=== PATIENT | male | born 1985 | race Caucasian/White ===

== ENCOUNTER 2018-02-14 06:31 | Inpatient (IN) | payer OTHER ==
--- NOTE | 2018-02-13 16:44 | PDHPUP ---
History & Physical Update H&P update statement: Print Patient Name ALISA MARQUEZ (32yo, M) ID# [id number] Appt. Date/Time 02/13/2018 02: 15PM 1985 Service Dept. MAIN OFFICE Provider MONAE CARLIN PA-C Insurance Med Primary: [place] Insurance # : [id number] Policy/Group # : [id number] Prescription: ESI1 - Member is eligible. details Chief Complaint Right CBB_discuss hip surgery Patient's Care Team Primary Care Provider: YOHANNES HINES MD: [id number] [facility] [address] [place] [address], , Patient's Pharmacies [id number] (ERX): [phone] [facility], [place] [address], , Vitals Ht: 6 ft 3 in 02/13/2018 02:28 pm Wt: 162.8 lbs 02/13/2018 02:29 pm BMI: 20.3 02/13/2018 02:29 pm BP: 112/76 sitting L arm 02/13/2018 02:30 pm Pulse: 79 bpm 02/13/2018 02:31 pm Allergies Reviewed Allergies NKDA Medications Reviewed Medications celecoxib 200 mg capsule take 2 capsules the night before surgery with dinner, then one tab once a day with food for 3 weeks 02/13/18 prescribed Monae Carlin PA-C cyclobenzaprine 10 mg tablet Take 1 tablet(s) every 8 hours as needed for muscle spasms 02/13/18 prescribed Monae Carlin PA-C Imodium 1 tablet 02/13/18 entered Marcela Ceron oxyCODONE 5 mg tablet Take 1 tablet(s) EVERY 4 HOURS as needed for pain 02/13/18 prescribed Monae Carlin PA-C No medications reported by patient on 02/13/2018 Vaccines None recorded. Problems Reviewed Problems Family History Reviewed Family History Father - Malignant neoplastic disease Brother - Malignant neoplastic disease - Malignant neoplastic disease Social History Reviewed Social History Smoking Status: Never smoker Occupation: [place], ranchers, and other agricultural managers Employer: [employer] Chewing tobacco: 2-4/day Alcohol intake: Moderate Caffeine intake: Occasional Exercise level: Moderate Hand Dominance: Right Education: 4 Year College Live alone or with others?: with others Surgical History Reviewed Surgical History Orthopaedic Surgery - 09/09/2017 Gastrointestinal Surgery - 09/09/2015 Orthopaedic Surgery - 09/09/2015 Orthopaedic Surgery - 09/09/2013 Gastrointestinal Surgery - 09/09/2006 Past Medical History Reviewed Past Medical History Anemia: Y Hernia: Y Have you had a blood transfusion since 1979: Y Screening None recorded. [facility] hip HPI Reported by patient. Location of symptoms: Right hip Symptoms: Pain; Decreased ROM Severity: moderate Duration: 6+ months; years Onset: acute on chronic Exacerbated by: Physical activity Associated Symptoms: no weakness; no numbness; no redness; no ecchymosis; no catching or locking; no drainage; no fever; no chills; no weight loss; no change in bowel/bladder habits; tingling Previous Surgery: surgical procedure: (ORIF right femoral neck fracture) Prior studies: radiographs Previous Injections: none Previous PT: did not help Notes: history of colectomy, iliostomy, groin lymph node biopsy AVN on hip xray ROS ROS as noted in the HPI Physical Exam Patient is a 32-year-old male. Constitutional: General Appearance: healthy-appearing, NAD, and normal body habitus. Psychiatric: Orientation: oriented to time, place, and person. Mood and Affect: normal affect and mood and active and alert. Gait and Station: Appearance: ambulating with no assistive devices and antalgic gait. Cardiovascular System: Arterial Pulses Right: dorsalis pedis pulse normal and posterior tibialis pulse normal. Edema Right: none. Varicosities Right: capillary refill test normal and no varicosities. Hip/Pelvis Appearance: Inspection: right leg shorter (1 ) cm. Hips: Bony Palpation Right: no tenderness of the SI joint or the greater trochanter. Soft Tissue Palpation Right: no tenderness of the hip adductor muscles or the piriformis and tenderness of the hip flexor muscles. Active Range of Motion Right: limited, flexion (100 deg.), internal rotation (10 deg.) , and external rotation (30 deg.). Passive Range of Motion Right: pain elicited by motion. Strength Right: normal 5/5. Skin: Right Lower Extremity: (normal) lower extremities: hip: right: incision: well-healed. Neurologic: Ankle Reflex Right: normal (2). Knee Reflex Right: normal (2). Sensation on the Right: T12 normal, L1 normal, L2 normal, L3 normal, L4 normal, S2 normal, and S3,4,5 normal. Heart Rate And Rhythm (normal) heart rate and rhythm. Lungs respirations unlabored. Assessment / Plan Rightfemoral head AVN with history of ORIF of femoral neck fracture Previous hip xrays were reviewed today revealing severe DJD Discussed operative and non-operative interventions for diagnosis of hip arthritis with patient. Recommend Right SARI for treatment. Discussed risks and benefits of operative intervention including but not limited to bleeding, infection, need for further surgery, blood clots, blood clots going to the lungs and rare perioperative complications including stroke, heart attack and . We also discussed risk for dislocation, change in leg length, fracture and need for further surgery. Patient understands risks and wishes to proceed. Informed consent was obtained today Postoperative medications were written today including ASA for VTE prophylaxis postop Right SARI scheduled R<L 1 cm 1. History of anemia Z86.2: Personal history of diseases of the blood and blood-forming organs and certain disorders involving the immune mechanism CBC W/ DIFF 2. Acute postoperative pain G89.18: Other acute postprocedural pain oxycodone 5 mg tablet - Take 1 tablet(s) EVERY 4 HOURS as needed for pain Qty: 20 tablet(s) Refills: 0 Pharmacy: [email or web address] [id number] cyclobenzaprine 10 mg tablet - Take 1 tablet(s) every 8 hours as needed for muscle spasms Qty: 30 tablet(s) Refills: 1 Pharmacy: [email or web address] [id number] 3. Prophylactic anticoagulation given Z76.89: Persons encountering health services in other specified circumstances celecoxib 200 mg capsule - take 2 capsules the night before surgery with dinner , then one tab once a day with food for 3 weeks Qty: 23 capsule(s) Refills: 0 Pharmacy: [email or web address] [id number] Note to Pharmacy: no refills unless patient discusses with provider first 4. 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 for Surgery 90 at Surgery on 02/14/2018 at 08:15 AM Monae Carlin PA-C for Surgery 90 at Surgery on 02/14/2018 at 08:15 AM Encounter Sign-Off Encounter signed-off by Monae Carlin PA-C, 02/13/2018. Encounter performed and documented by Monae Carlin PA-C Encounter reviewed & signed by Monae Carlin PA-C on 02/13/2018 at 4:33pm There is not enough information to calculate an E&M code H&P update: H&P reviewed & patient examined
[~2018-02-14 06:31] MED LIST: ROPIVACAINE 0.2% 80 MG, EPINEPHrine 0.2 MG, KETOROLAC TROMETHAMINE 30 MG in SYRINGE 0 ML IU ONE; TRANEXAMIC ACID 3,000 MG in NS (SYRINGE) 50 ML IRR ONE
[2018-02-14] MEDS ORDERED: FAMOTIDINE 20 MG TAB PO ONE (06:42)
[2018-02-14] MEDS ORDERED: ceFAZolin 2 GM/DEXTROSE 100 ML IV ONE (06:42)
[2018-02-14] MEDS ORDERED: ACETAMINOPHEN 325 MG TAB PO ONE (06:42)
[2018-02-14] MEDS ORDERED: DEXAMETHASONE 4 MG/ML VIAL IVP ONE (06:42)
[2018-02-14] MEDS ORDERED: LIDOCAINE 1% 2 ML INJ ID PRN (06:43)
[2018-02-14] MEDS ORDERED: LR 1,000 ML IV ONE (06:43)
[2018-02-14] MEDS ORDERED: TRANEXAMIC ACID 3,000 MG/50 ML BAG IRR ONE (07:29)
[2018-02-14] MEDS ORDERED: MIDAZOLAM 2 MG/2 ML VIAL IVP ONE (08:35)
--- NOTE | 2018-02-14 08:35 | PDANEPAE ---
ANE History of Present Illness right hip OA ANE Past Medical History - Cardiovascular History Hx Hypertension: No Hx Arrhythmias: No Hx Chest Pain: No Hx Coronary Artery / Peripheral Vascular Disease: No Hx CHF / Valvular Disease: No Hx Palpitations: No - Pulmonary History Hx COPD: No Hx Asthma/Reactive Airway Disease: No Hx Recent Upper Respiratory Infection: No Hx Oxygen in Use at Home: No Hx Sleep Apnea: No Sleep Apnea Screening Result - Last Documented: Negative - Neurologic History Hx Cerebrovascular Accident: No Hx Seizures: No Hx Dementia: No - Endocrine History Hx Diabetes: No Hypothyroid: No Hyperthyroid: No Obesity: no - Renal History Hx Renal Disorders: No - Liver History Hx Hepatic Disorders: No - Neurological & Psychiatric Hx Hx Neurological and Psychiatric Disorders: No - Cancer History Hx Cancer: No - Congenital Disorder History Hx Congenital Disorders: No - GI History Hx Gastrointestinal Disorders: Yes Gastrointestinal History Comment: CROHNS. ILEOSTOMY - Other Health History Other Health History: NEG. ANEMIA W/CROHNS DURING J POUCH HAD BLEEDING - NONE SINCE ILEOSTOMY - Chronic Pain History Chronic Pain: Yes (R HIP) - Surgical History Prior Surgeries: HERNIA CHILD. LYMPH NODE BX - SEVERAL BENIGN. BONE SPUR JORDAN ANKLES. THUMB SURG L. R HAND LIGAMENT REPAIR. R FEMORAL BREAK /REPAIR. TOTAL COLECTOMY/RECONSTRUCTION. W/J POUCH (CROHNS). ADHESION SURGERY. INTESTINAL SURGERY W/ILEOSTOMY ANE Review of Systems Review of systems is: negative Review of Systems: - Exercise capacity METS (RN): 6 METS ANE Patient History - Allergies Allergies/Adverse Reactions: No Known Allergies Allergy (Unverified 02/12/18 11:09) - Home Medications Home medications: home medication list seen and reviewed Home Medications: Loperamide HCl [Imodium 2 mg (*)] 2 mg PO PRN PRN 02/12/18 [Last Taken Unknown] Multivitamins [Multivitamin (*)] 1 each PO DAILY 02/12/18 [Last Taken Unknown] - NPO status NPO Since - Liquids (Date): 02/14/18 NPO Since - Liquids (Time): 06:00 NPO Since - Solids (Date): 02/13/18 NPO Since - Solids (Time): 18:00 - Anes Hx Anes Hx: no prior problems - Smoking Hx Smoking Status: Never smoked - Family Anes Hx Family Hx Anesthesia Complications: NEG ANE Labs/Vital Signs - Vital Signs Blood Pressure: 123/90 Heart Rate: 57 Respiratory Rate: 16 O2 Sat (%): 100 Height: 187.96 cm Weight: 72.575 kg ANE Physical Exam - Airway Neck exam: FROM Mallampati Score: Class 1 Mouth exam: normal dental/mouth exam - Pulmonary Pulmonary: no respiratory distress - Cardiovascular Cardiovascular: regular rate and rhythym - ASA Status ASA Status: II ANE Anesthesia Plan Anesthesia Plan: spinal
[2018-02-14] MEDS ORDERED: PROPOFOL/EMULSION 500 MG/50 ML BOTTLE IV ONE ×2 (08:41→09:52)
[2018-02-14] MEDS ORDERED: LIDOCAINE 2% 5 ML SDV ONE (08:41)
[2018-02-14] MEDS ORDERED: HYDROGEN PEROXIDE 473 ML BOTTLE TP ONE (09:53)
[2018-02-14] MEDS ORDERED: ACETAMINOPHEN 500 MG TAB PO PRN (10:46)
[2018-02-14] MEDS ORDERED: ALBUTEROL 3 ML DEYVIAL IH PRN (10:46)
[2018-02-14] MEDS ORDERED: oxyCODONE IR 5 MG TAB PO PRN (10:46)
[2018-02-14] MEDS ORDERED: HYDROCODONE/APAP 5/325 TAB PO PRN (10:46)
[2018-02-14] MEDS ORDERED: LABETALOL HCL 5 MG/ML 20 ML MDV IVP PRN (10:46)
[2018-02-14] MEDS ORDERED: NALOXONE HCL 0.4 MG/ML INJ IVP PRN (10:46)
[2018-02-14] MEDS ORDERED: LR 500 ML IV PRN (10:46)
[2018-02-14] MEDS ORDERED: ONDANSETRON 4 MG/2 ML VIAL IVP PRN ×2 (10:46→11:09)
--- NOTE | 2018-02-14 10:46 | POSTANESTH ---
Post Anesthetic Evaluation Cardiovascular Status: Normal, Stable Respiratory Status: Normal, Stable Level of Consciousness/Mental Status: Can Participate in Eval, Alert and Oriented Pain Control: Adequate, Prn Tx Ordered Nausea/Vomiting Control: Adequate, Prn Tx Ordered Complications Possibly Related to Anesthesia: None Noted
[2018-02-14] MEDS ORDERED: POLYETHYLENE GLYCOL 3350 17 GM PKT PO PRN (11:09)
[2018-02-14] MEDS ORDERED: ONDANSETRON DISINTEGRATING 4 MG TAB PO PRN (11:09)
[2018-02-14] MEDS ORDERED: DIPHENOXYLATE/ATROPINE LOMOTIL 1 TAB PO PRN (11:09)
[2018-02-14] MEDS ORDERED: TEMAZEPAM 15 MG CAP PO PRN (11:09)
[2018-02-14] MEDS ORDERED: PROMETHAZINE HCL 25 MG/ML INJ IVP PRN (11:09)
[2018-02-14] MEDS ORDERED: LACTULOSE 20 GM/30 ML UDCUP PO PRN (11:09)
[2018-02-14] MEDS ORDERED: METOCLOPRAMIDE 10 MG/2 ML VIAL IVP PRN (11:09)
[2018-02-14] MEDS ORDERED: MAGNESIUM HYDROXIDE 30 ML UDCUP PO PRN (11:09)
[2018-02-14] MEDS ORDERED: diphenhydrAMINE 25 MG CAP PO PRN (11:09)
[2018-02-14] MEDS ORDERED: BISACODYL 10 MG SUPP PR PRN (11:09)
[2018-02-14] MEDS ORDERED: PROMETHAZINE HCL 25 MG SUPPR PR PRN (11:09)
--- NOTE | 2018-02-14 11:09 | POSTOPPROG ---
Post Op Note Date of Operation: 02/14/18 Surgeon: Rober Carlin Lens Coating Technician: Monae Carlin PAc Anesthesiologist: Rebeca Anesthesia: Spinal Pre-op Diagnosis: R femoral head AVN s/p Femoral neck fx Post-op Diagnosis: same Indication: pain Procedure: R SARI conversion of prior surgery Findings: Femoral head AVN Inf/Abcess present in the surg proc area at time of surgery?: No EBL: 100-500
[2018-02-14] MEDS ORDERED: LOPERAMIDE HCL 2 MG CAP PO PRN (11:12)
[2018-02-14] MEDS ORDERED: LR 1,000 ML IV SCH (11:30)
[2018-02-14] MEDS ORDERED: fentaNYL 100 MCG/2 ML INJ ONE (11:34)
[2018-02-14] MEDS: fentaNYL 100 MCG/2 ML INJ IVP PRN ×2 (11:35→11:43)
[2018-02-14] MEDS ORDERED: HYDROCODONE/APAP 5/325 TAB ONE (11:49)
[2018-02-14] MEDS ORDERED: HYDROmorphONE/DILAUDID 1 MG/ML INJ ONE (12:05)
[2018-02-14] MEDS: HYDROmorphONE/DILAUDID 1 MG/ML INJ IVP PRN ×2 (12:06→12:27)
--- NOTE | 2018-02-14 12:32 | PDMN ---
Medical Necessity Medical necessity: [facility] S560 hip arthroplasty inpt only R SARI
[2018-02-14] MEDS: oxyCODONE IR 5 MG TAB PO PRN ×2 (14:47→23:06)
--- NOTE | 2018-02-14 14:52 | GOP ---
[f rep st] OPERATIVE REPORT DATE OF OPERATION: 02/14/2018 SURGEON: Armand Carlin MD DIESEL AUTOMOTIVE TECHNICIAN: GIOVANNA Wynne PREOPERATIVE DIAGNOSIS: Right hip osteoarthritis and avascular necrosis. POSTOPERATIVE DIAGNOSIS: Right hip osteoarthritis and avascular necrosis. PROCEDURE PERFORMED: Right total hip arthroplasty with x-ray, conversion of prior surgery. FINDINGS: ESTIMATED BLOOD LOSS: 200 cc. INDICATIONS: The patient has progressively worsening arthritis of the hip which has failed medical m anagement. The patient understands the treatment options including continued non-operative care and has selected surgical intervention. The patient has decided to undergo total hip arthroplasty via th e direct anterior approach, understanding the risks of the procedure including, but not limited to, n eurovascular injury, infection, persistent pain, component wear and loosening, deep venous thrombosis , pulmonary embolism, limb length inequality, hip instability (including dislocation), and intra-oper ative fractures. DESCRIPTION OF PROCEDURE: After proper identification of the patient including verification and chris ing the surgical site, the patient was brought to the operating room and placed in the supine positio n. All bony prominences were well padded. Anesthesia was induced without complication and intraveno us prophylactic antibiotics were administered prior to skin incision. Prior to proceeding with hip replacement, an incision was made through the patient's prior surgical i ncision. Three screws were removed with 3 washers. This was then copiously irrigated and closed in layers, and we proceeded with the total hip replacement. The operative leg was placed in the Trumpf Arch table extension and the well leg in a [place] leg ho lder. The patient was prepped and draped in the usual sterile fashion. The C-arm was draped for int ra-operative fluoroscopy to check acetabular position, femoral component position including leg lengt h and femoral offset. Attention was then drawn to surgical exposure of the hip. An incision was made with a #10 [place] r blade starting 3 cm lateral and 3 cm distal to the anterior superior iliac spine measuring 8-10 cm and coursing distally toward the greater trochanter. The skin and subcutaneous tissues were divided sharply down to the fascia abel. The fascia abel was incised in line with the skin incision exposing the underlying tensor fascia abel muscle. The muscle was bluntly elevated from the fascia and the f irst extracapsular Cobra retractor was placed laterally at the junction of the superior femoral neck and greater trochanter. The lateral femoral circumflex vessels were identified, cauterized, and divi ded with the Aquamantys bipolar cautery. The deep investing fascia of the TFL was divided to allow p traci mobilization of the muscle preventing damage during the retraction. The reflected head of the rectus femoris muscle was elevated off the anterior hip capsule and a medial Cobra retractor was plac ed just proximal to the lesser trochanter. The anterior capsulotomy was made sharply from the superolateral acetabulum to the saddle junction of the superior femoral neck and greater trochanter, then coursing inferomedial towards the lesser troc hanter. The retractors were then placed in the intracapsular position for femoral neck osteotomy. C orresponding to pre-operative templating, the osteotomy was made with the oscillating saw carefully p rotecting the greater trochanter and soft tissues. The femoral head was removed from the acetabulum with a corkscrew and confirmed to be severely arthritic with exposed bone, deformity and osteophytes. Similar findings were confirmed in the acetabulum. The Arch table extension was then placed in 40 degrees external rotation. Attention was then drawn to the acetabular preparation. After placement of the anterior and posterio r Cobra retractors outside the labrum and intracapsular, the circumferential labrum was removed sharp ly. The foveal contents were then removed and hemostasis obtained with cautery. The first reamer selected was sized using the removed femoral head. Reaming began with medialization and then commenced in 2 mm increments at 45 degrees of abduction and 15 degrees of anteversion using fluoroscopic navigation. Reaming ceased 1 mm less than the definitive acetabular component and tim esponded to the pre-operative templating. The final acetabular component was inserted using fluorosc opy to achieve proper orientation yielding excellent purchase and stability in the acetabulum. The f inal acetabular liner was then placed and its seating confirmed. Attention was then turned to the femur. The Arch table extension was placed in extension and adducti on, delivering the osteotomized femoral neck into the wound. A 2-pronged femoral elevator was placed at the calcar and another at the tip of the greater trochanter. The posterolateral capsule was rele ased with cautery allowing mobilization of the femur lateral and anterior for preparation. The exter nal rotators were visualized and preserved. A curette and rongeur were used to open the starting poi nt for broaching. Serial broaching started with the #0 broach and ended with the broach that exhibit ed excellent fit in the proximal femur. A change in pitch during mallet strikes was accompanied by t he inability to advance the broach any further. The trial reduction was performed and fluoroscopic n avigation was utilized to check limb length. Adjustments were made to equalize limb length according ly. After the final trials were accepted they were removed and the wound was copiously lavaged. The femo ral component was seated to the same depth as the final broach and the femoral head was impacted onto the clean trunnion. The hip was then reduced for the final time and once more fluoroscopy was used to check that limb length equality was achieved. The wound was irrigated and closed in layers, the fascia abel with 2-0 Quill, the subcutaneous tissue with 2-0 Quill, and the skin with Dermabond. Sterile dressings were applied. Final sharps and spon ge counts were accurate. The patient was then transferred to a hospital bed and brought to the [facility] room in stable condition. IMPLANTS: Accolade II size 7 at 132. Acetabular component is 58 mm Tritanium II. The liner is a Tr ident X3, 36 mm. The head is Biolox Delta 36 mm, +0. /[id number]/MODL
[2018-02-14] MEDS: ACETAMINOPHEN 325 MG TAB PO SCH ×3 (15:34→23:04)
[2018-02-14] MEDS: ceFAZolin 2 GM/DEXTROSE 100 ML IV SCH ×2 (15:45→23:04)
--- NOTE | 2018-02-14 17:24 | ASMTCMCOM ---
CM Note CM Note Notes: Pt is s/p a R hip arthroscopy, screw removal. PT has recommended home with 24 hr supervision. Pt has an ostomy. CM will continue to follow for any d/c needs. Date Signed: 02/14/2018 05:23 PM Electronically Signed By:LINCOLN Pike
[2018-02-14] MEDS: CYCLOBENZAPRINE 10 MG TAB PO PRN (17:49)
[2018-02-14] MEDS: ASPIRIN 81 MG CHEWABLE TAB PO SCH (20:45)
[2018-02-14] MEDS: FAMOTIDINE 20 MG TAB PO SCH (20:45)
[2018-02-14] MEDS ORDERED: SENNOSIDES/DOCUSATE SODIUM TAB PO SCH (21:00)
[2018-02-15] MEDS: oxyCODONE IR 5 MG TAB PO PRN ×2 (05:46→11:39)
[2018-02-15] MEDS: ACETAMINOPHEN 325 MG TAB PO SCH (05:46)
[2018-02-15] MEDS: CYCLOBENZAPRINE 10 MG TAB PO PRN (05:46)
[2018-02-15 08:32] VITALS: BP 97/68
[2018-02-15] MEDS: FAMOTIDINE 20 MG TAB PO SCH (08:46)
[2018-02-15] MEDS: ASPIRIN 81 MG CHEWABLE TAB PO SCH (08:46)
--- NOTE | 2018-02-15 10:34 | SOAPPROG ---
VERENA Progress Note Assessment/Plan: Assessment: Moustapha is doing well POD 1 s/p R SARI due to avascular necrosis of femoral head s/ p femur fracture 1). pain management: pain well controlled on oral pain meds 2) VTE ppx: recommend aspirin 81 mg BID for 4 weeks 3) WBAT with walker for 3 weeks. No active hip flexion or hip ABduction 4) anemia: expected postop, asymptomatic 5) d/c to home: d/c to home today.patient has already passed PT 6)postop urinary retention: straight cath'd yesterday in PACU, resolved yesterday afternoon. Plan: 02/15/18 10:30 02/15/18 10:34 Subjective: patient is doing well, c/o mod thigh pain, denies SOB,chest pain and n/v. Objective: Vital Signs Temp Pulse Resp BP Pulse Ox 36.5 C 72 14 97/68 L 99 02/15/18 08:00 02/15/18 08:00 02/15/18 08:00 02/15/18 08:00 02/15/18 08:00 Laboratory Results 02/15/18 05:35 02/14/18 02/15/18 02/16/18 05:59 05:59 05:59 Intake Total 2009 500 Output Total 1100 Balance 910 500 RLE: mod ecchymosis, mild swelling, incision dressing is clean and dry, NVI, +pf /df ICD10 Worksheet Patient Problems: Problems Problem Status Onset Avascular necrosis of right femoral head Acute
--- NOTE | 2018-02-15 17:22 | ASMTLACE ---
[facility] Length of stay for Answers: 1 day current admission Acuity / Level of Answers: Yes Care: Did the patient have an inpatient admission? Comorbidities - select Answers: Other Notes: anemia, multiple all that apply orthopedic surgeries # of Emergency department Answers: 0 visits in the last 6 months Score: 5 Date Signed: 02/15/2018 05:21 PM Electronically Signed By:Holley Helton RN
--- NOTE | 2018-02-15 17:26 | ASDISCHSUM ---
Discharge Information Plan Status:Home with No Needs Medically Cleared to Leave:02/15/2018 Discharge Date:02/15/2018 11:53 AM CM D/C Disposition:Home, Routine, Self-Care ADT D/C Disposition:Home, Routine, Self-Care Projected Discharge Date:02/15/2018 11:53 AM Transportation at D/C:Family Discharge Delay Reason: Follow-Up Date:02/15/2018 11:53 AM Discharge Slot:2 - 12:01 pm - 18:00 pm Final Diagnosis:s/p Right hip arthroplasty secondary to avascular necrosis of femur head s/p femur f x Placement Information Patient Contact Information Contact Name:ESTEFANÍA Relationship: Address:[address] City:[facility] Phone: [facility]/Zip Code:[place] [address] Email: Financial Information Financial Class:HMO and PPO Plans Primary Plan Desc:H[employer] Primary Plan Number:[id number] Secondary Plan Desc: Secondary Plan Number: Assessment Information [facility] CM Progress Note CM Note CM Note Notes: Pt is s/p a R hip arthroscopy, screw removal. PT has recommended home with 24 hr supervision. Pt has an ostomy. CM will continue to follow for any d/c needs. Date Signed: 02/14/2018 05:23 PM Electronically Signed By:LINCOLN Pike LACE LACDorian Length of stay for Answers: 1 day current admission Acuity / Level of Answers: Yes Care: Did the patient have an inpatient admission? Comorbidities - select Answers: Other Notes: anemia, multiple all that apply orthopedic surgeries # of Emergency department Answers: 0 visits in the last 6 months Score: 5 Date Signed: 02/15/2018 05:21 PM Electronically Signed By:Holley Helton RN Case Management Discharge Plan Note Case Management Discharge Discharge Order Complete? Answers: Yes Patient to Obtain Answers: Independently Medications Transportation Arranged Answers: Family/Friends EMTALA Complete Answers: No Notes: N/A Case Management Transport Answers: No Notes: N/A Form Complete Faxed Final Orders Answers: No Notes: N/A Agency/Facility Transfer Answers: No Notes: N/A Report Printed & Faxed to Receiving Agency Family Notified Answers: Yes Notes: aware Discharge Comments Notes: Reviewed chart, spoke with NANO Partida regarding discharge plan of care, pt's progress. Per MD notes, pt to discharge home independently with no identified needs and family support. Per Helga, pt denies needs. No IM signed, not applicable. Pt to follow up as directed. CM available for any further issues or concerns. Discharge Plan: Home independently with family support Date Signed: 02/15/2018 05:25 PM Electronically Signed By:Holley Helton RN Intervention Information
== END 2018-02-15 11:53 | disposition home or self-care (01) | DRG 470 ==
LOC: F3N 06:31
PROVIDERS: ADMIT Orthopaedic Surgery; ATTEND Orthopaedic Surgery
PROC: 0SR904Z Replacement of Right Hip Joint with Ceramic on Polyethylene Synthetic Substitute, Open Approach (ICD-10-PCS; principal; 2018-02-14 08:30)
DX: M16.11 Unilateral primary osteoarthritis, right hip (principal); M87.051 Idiopathic aseptic necrosis of right femur; R33.9 Retention of urine, unspecified; Z86.2 Personal history of diseases of the blood and blood-forming organs and certain disorders involving the immune mechanism
CPT/HCPCS: 97116-GP; 97161-GP; J0171; J0690; J1100; J1170; J1885; J2250; J2704; J2795; J3010